=== PATIENT | male | born 1980 | race Caucasian/White ===

== ENCOUNTER 2021-05-22 10:18 | Emergency (ER) | payer OTHER ==
[~2021-05-22] VITALS: Ht 180.3 cm; Wt 79.4 kg
--- NOTE | 2021-05-22 10:46 | NUR ---
Dr Victor at the bedside for MSE.
[2021-05-22 11:16] VITALS: BP 134/74
--- NOTE | 2021-05-22 11:24 | NUR ---
Patient discharged to home in stable condition. Written and verbal after care instructions given. Patient verbalizes understanding of instructions. Stressed follow up or return to ER for worsening s/s.
== END 2021-05-22 11:34 | disposition home or self-care (01) ==
LOC: ER 10:18
DX: S52.201A Unspecified fracture of shaft of right ulna, initial encounter for closed fracture (principal); W01.198A Fall on same level from slipping, tripping and stumbling with subsequent striking against other object, initial encounter; Y92.89 Other specified places as the place of occurrence of the external cause
CPT/HCPCS: 73090; A4663